=== PATIENT | female | born 1940 | race Caucasian/White ===

== ENCOUNTER 2016-08-29 09:01 | Emergency (ER) | payer MEDICARE, MEDICAID ==
[2016-08-29 09:34] VITALS: BP 110/72
--- NOTE | 2016-08-29 10:28 | UC ---
Respiratory Complaint HPI - HPI Summary HPI Summary: patient has ahd increasing SOB, cough and fatigue. Low grade fever. over the past 5 days. - History of Current Complaint Chief Complaint: UCGeneralIllness Stated Complaint: CHEST CONGESTION, COUGH Time Seen by Provider: 08/29/16 10:15 Hx Obtained From: Patient ?: No Onset/Duration: Sudden Onset, Lasting Days Timing: Constant Severity Initially: Mild Severity Currently: Moderate Pain Intensity: 6 Pain Scale Used: 0-10 Numeric Character: Cough: Productive Aggravating Factors: Deep Breaths, Recumbent Position Alleviating Factors: Nothing Associated Signs And Symptoms: Positive: Dyspnea, Chills, URI, Nasal Congestion , Sinus Discomfort - Allergies/Home Medications Allergies/Adverse Reactions: Allergies Allergy/AdvReac Type Severity Reaction Status Date / Time Diltiazem [Cardizem] Allergy Intermediate FEET / Verified 04/15/16 08:35 PAL[facility] PEEL Home Medications: Home Medications Furosemide [Lasix] 20 mg PO DAILY 08/29/16 [History Confirmed 08/29/16] Potassium Chlor TAB* [Klor Con ER TAB*] 20 meq PO DAILY 08/29/16 [History Confirmed 08/29/16] Valsartan 160 mg PO DAILY 08/29/16 [History Confirmed 08/29/16] PMH/Surg Hx/FS Hx/Imm Hx Previously Healthy: Yes Cardiovascular History Of: Reports: Cardiac Disorders - [place] 1993, AORTIC ANEURYSM , STENT LEFT FEMORAL, Hypertension Respiratory History Of: Reports: COPD, Asthma, Pneumonia GI/ History Of: Reports: Ulcer - Surgical History Surgical History: Yes Surgery Procedure, Year, and Place: Stent Left leg 2012, Open heart 1992, Angioplasty x 6, Cholecystectomy 2012. Basal cell spot removed from chest - Family History Known Family History: Positive: None, Hypertension - Social History Alcohol Use: Weekly Substance Use Type: None Smoking Status (MU): Heavy Every Day Tobacco Smoker Type: Cigarettes Amount Used/How Often: 1/2 pack per day Length of Time of Smoking/Using Tobacco: 59 years Have You Smoked in the Last Year: Yes Household Exposure Type: Cigarettes Review of Systems Constitutional: Chills, Fatigue Skin: Negative Eyes: Negative ENT: Ear Ache, Nasal Discharge Respiratory: Shortness Of Breath, Cough Cardiovascular: Negative Gastrointestinal: Negative Genitourinary: Negative Motor: Negative Neurovascular: Negative Musculoskeletal: Negative Neurological: Negative Psychological: Negative All Other Systems Reviewed And Are Negative: Yes Physical Exam Triage Information Reviewed: Yes Appearance: No Pain Distress, Well-Nourished, Ill-Appearing Vital Signs: Initial Vital Signs Temp 99.2 F 08/29/16 09:26 Pulse 78 08/29/16 09:26 Resp 16 08/29/16 09:26 BP 110/72 08/29/16 09:26 Pulse Ox 98 08/29/16 09:26 Vital Signs Reviewed: Yes Eye Exam: Normal Eyes: Positive: Conjunctiva Inflamed ENT Exam: Normal ENT: Positive: TM bulging Dental Exam: Normal Neck exam: Normal Neck: Positive: Supple, Nontender, No Lymphadenopathy Respiratory: Positive: Chest non-tender, No respiratory distress, No accessory muscle use, Decreased breath sounds, Crackles - RLL Cardiovascular Exam: Normal Cardiovascular: Positive: RRR, No Murmur, Pulses Normal Abdominal Exam: Normal Abdomen Description: Positive: Nontender, No Organomegaly, Soft Bowel Sounds: Positive: Present Musculoskeletal Exam: Normal Musculoskeletal: Positive: Strength Intact, ROM Intact, No Edema Neurological Exam: Normal Neurological: Positive: Alert, Muscle Tone Normal Psychological Exam: Normal Skin Exam: Normal UC Diagnostic Evaluation - Laboratory O2 Sat by Pulse Oximetry: 98 Respiratory Course/Dx - Differential Dx/Diagnosis Differential Diagnosis/HQI/PQRI: Aspiration, Bronchitis, Influenza, Laryngitis Provider Diagnoses: LLL pneumonia. cough. sob Discharge - Discharge Plan Condition: Stable Disposition: HOME Patient Education Materials: Community Acquired Pneumonia (ED) Additional Instructions: Please take the medication as prescribed. If you are still have increasing symptoms after a few days of treatement please follow up with your primary physician. I do recommend follow up after treatment to make sure it was successful. Use the albuterol, 3-4 times a day for the first couple days then 2 times a day when symptoms improve.
--- NOTE | 2016-08-29 10:59 | RAD ---
HISTORY: Cough, shortness breath, fever COMPARISONS: October 12, 2015 VIEWS: 2: Frontal dual-energy and lateral views of the chest. FINDINGS: CARDIOMEDIASTINAL SILHOUETTE: The cardiomediastinal silhouette is normal. JUAREZ: The juarez are normal. PLEURA: The costophrenic angles are sharp. No pleural abnormalities are noted. LUNG PARENCHYMA: There is hyperinflation with flattening of the diaphragm and expansion of the AP diameter of the chest. There is minimal linear opacification of the lingula ABDOMEN: The upper abdomen is clear. There is no subphrenic gas. BONES AND SOFT TISSUES: The patient is status post median sternotomy OTHER: None. IMPRESSION: 1. COPD. 2. PATCHY LINEAR ATELECTASIS VERSUS PLEURAL PARENCHYMAL SCARRING OF THE LEFT LUNG BASE
== END 2016-08-29 11:18 | disposition home or self-care (01) ==
LOC: UCCORT 09:01
DX: J18.9 Pneumonia, unspecified organism (principal); J44.9 Chronic obstructive pulmonary disease, unspecified; I25.2 Old myocardial infarction; I51.9 Heart disease, unspecified; J45.909 Unspecified asthma, uncomplicated; F17.210 Nicotine dependence, cigarettes, uncomplicated; Z95.820 Peripheral vascular angioplasty status with implants and grafts; Z88.8 Allergy status to other drugs, medicaments and biological substances
CPT/HCPCS: 71020; 99212; G0463

== ENCOUNTER 2016-11-16 08:12 | Emergency (ER) | payer MEDICARE, MEDICAID ==
[2016-11-16] MEDS ORDERED: Tetan/Diph/Pertus SYR(Tdap)* 0.5 ML SYR(BOOSTRIX) use SYR IM ONE (08:28)
--- NOTE | 2016-11-16 08:30 | UC ---
Skin Complaint HPI - HPI Summary HPI Summary: Patient hit the left joyce on the bathub 4 days ago, caused a skin tear. she was self treating and now it is infected. she is also three years behind on a tetanus. she is on Plavix. - History of Current Complaint Time Seen by Provider: 11/16/16 08:16 Stated Complaint: LEFT JOYCE PAIN Hx Obtained From: Patient ?: No Onset/Duration: Sudden Onset, Lasting Days Skin Exposure Onset/Duration: Days Ago Timing: Constant Onset Severity: Mild Current Severity: Mild Location: Discrete - left joyce Character: Redness, Painful Aggravating: Nothing Alleviating: Nothing - Allergy/Home Medications Allergies/Adverse Reactions: Allergies Allergy/AdvReac Type Severity Reaction Status Date / Time Diltiazem [Cardizem] Allergy Intermediate FEET / Verified 11/16/16 08:36 [facility] Review of Systems Constitutional: Negative Skin: Other - large skin tear Eyes: Other - red on sclera ENT: Negative Respiratory: Negative Cardiovascular: Negative Gastrointestinal: Negative Genitourinary: Negative Motor: Negative Neurovascular: Negative Musculoskeletal: Negative Neurological: Negative Psychological: Negative All Other Systems Reviewed And Are Negative: Yes PMH/Surg Hx/FS Hx/Imm Hx Previously Healthy: Yes Cardiovascular History Of: Reports: Cardiac Disorders - [place] 1993, AORTIC ANEURYSM , STENT LEFT FEMORAL, Hypertension Respiratory History Of: Reports: COPD, Asthma, Pneumonia GI/ History Of: Reports: Ulcer - Surgical History Surgical History: Yes Surgery Procedure, Year, and Place: Stent Left leg 2012, Open heart 1992, Angioplasty x 6, Cholecystectomy 2012. Basal cell spot removed from chest - Family History Known Family History: Positive: None, Hypertension - Social History Alcohol Use: Weekly Substance Use Type: None Smoking Status (MU): Heavy Every Day Tobacco Smoker Type: Cigarettes Amount Used/How Often: 1/2 pack per day Length of Time of Smoking/Using Tobacco: 59 years Have You Smoked in the Last Year: Yes Household Exposure Type: Cigarettes Physical Exam Triage Information Reviewed: Yes Appearance: Well-Nourished, Ill-Appearing, Pain Distress Vital Signs Reviewed: Yes Eye Exam: Normal Eyes: Positive: Conjunctiva Clear, Other: - large fluid filled bags under both eyes, left eye subconjunctival hemmorrage ENT: Positive: Hearing grossly normal, Pharynx normal, TMs normal Dental Exam: Normal Neck exam: Normal Neck: Positive: Supple, Nontender, No Lymphadenopathy Respiratory Exam: Normal Respiratory: Positive: Chest non-tender, Lungs clear, Normal breath sounds, No respiratory distress, No accessory muscle use Cardiovascular Exam: Normal Cardiovascular: Positive: RRR, No Murmur, Pulses Normal Abdominal Exam: Normal Abdomen Description: Positive: Nontender, No Organomegaly, Soft Bowel Sounds: Positive: Present Musculoskeletal Exam: Normal Musculoskeletal: Positive: Strength Intact, ROM Intact, No Edema Neurological Exam: Normal Neurological: Positive: Alert, Muscle Tone Normal Psychological Exam: Normal Skin: Positive: significant lesion(s) - large skin tear, old and scabbed, erythema down the leg, slightly edemetous Course/Dx - Course Course Of Treatment: hx obtained, exam performed, meds reviewed, skin cleansed dressed and treat with ABX - Differential Diagnoses - Skin Complaint Differential Diagnoses: Abscess, Cellulitis, Contact Dermatitis, Eczema - Diagnoses Provider Diagnoses: skin tear. vaccine administration of Dtap. cellulitis. subconjunctival hemmorrage Discharge - Discharge Plan Condition: Stable Disposition: HOME Patient Education Materials: Skin Tear (ED) Referrals: Jennifer Vazquez MD [Primary Care Provider] - Additional Instructions: Keep the dressing on for 24 hours. Try to keep the area clean and dry for the next 48 hours. elevated leg at rest and return here or your primary doctor if redness increases, you develop a fever or other symptoms.
[2016-11-16 08:36] VITALS: BP 149/65
== END 2016-11-16 09:10 | disposition home or self-care (01) ==
LOC: UCCORT 08:12
DX: S81.802A Unspecified open wound, left lower leg, initial encounter (principal); L03.116 Cellulitis of left lower limb; W22.09XA Striking against other stationary object, initial encounter; Y93.9 Activity, unspecified; Y92.002 Bathroom of unspecified non-institutional (private) residence as the place of occurrence of the external cause; Z23 Encounter for immunization; H11.32 Conjunctival hemorrhage, left eye; I25.2 Old myocardial infarction; I10 Essential (primary) hypertension; Z95.5 Presence of coronary angioplasty implant and graft; F17.210 Nicotine dependence, cigarettes, uncomplicated; Z79.01 Long term (current) use of anticoagulants; Z90.49 Acquired absence of other specified parts of digestive tract; Z88.8 Allergy status to other drugs, medicaments and biological substances
CPT/HCPCS: 90715; 96372; 99213; G0463

== ENCOUNTER 2017-01-25 08:16 | Emergency (ER) | payer MEDICARE, MEDICAID ==
[2017-01-25 08:57] VITALS: BP 124/66
[2017-01-25] MEDS ORDERED: Albuterol 2.5 MG/3 ML NEB.SOL* (0.083%) INH ONE (09:05)
--- NOTE | 2017-01-25 09:28 | RAD ---
INDICATION: Cough and shortness of breath. History of pneumonia. History of COPD. Coronary artery disease. COMPARISON: August 29, 2016 TECHNIQUE: Dual energy PA and routine lateral views of the chest were obtained. REPORT: Elevated lung volumes and both diffuse mild prominence of the interstitial markings and patchy rarefaction of the mid to upper lung zone interstitial markings. Minimal LEFT basilar linear subsegmental atelectasis. No consolidation concerning for pneumonia or suspicious focal pulmonary lesion. Negative for pleural effusion or pneumothorax. Median sternotomy wires. Negative for cardiomegaly. Unremarkable central pulmonary vasculature and mediastinal contours. Gallbladder fossa level surgical clips. Bone density appears decreased. Multilevel thoracic degenerative spondylosis. IMPRESSION: Stigmata of obstructive lung disease. Minimal linear LEFT basilar subsegmental atelectasis.
--- NOTE | 2017-01-25 09:30 | UC ---
Respiratory Complaint HPI - HPI Summary HPI Summary: productive cough x 7 days + green sputum, + nasal congestion , pnd, no fever, + chills, + sob \ hx of frequent pneumonia - History of Current Complaint Chief Complaint: UCRespiratory Stated Complaint: COUGH Time Seen by Provider: 01/25/17 09:00 Hx Obtained From: Patient Onset/Duration: Gradual Onset, Lasting Days - 7, Still Present Timing: Constant Severity Initially: Moderate Severity Currently: Moderate Character: Cough: Productive - green Aggravating Factors: Exertion, Deep Breaths Alleviating Factors: Nothing Associated Signs And Symptoms: Positive: Dyspnea, Chills, URI, Nasal Congestion. Negative: Fever, Pleuritic Chest Pain, Wheezing, Hemoptysis, Dizziness, Calf Pain, Calf Swelling, Edema, Hoarseness, Sinus Discomfort - Allergies/Home Medications Allergies/Adverse Reactions: Allergies Allergy/AdvReac Type Severity Reaction Status Date / Time Diltiazem [Cardizem] Allergy Intermediate FEET / Verified 01/25/17 08:36 [facility]EL Home Medications: Home Medications Clopidogrel TAB* [Plavix TAB*] 75 mg PO DAILY 01/25/17 [History Confirmed ] PMH/Surg Hx/FS Hx/Imm Hx Respiratory History: COPD - Surgical History Surgical History: Yes Surgery Procedure, Year, and Place: Stent Left leg 2012, Open heart 1992, Angioplasty x 6, Cholecystectomy 2012. Basal cell spot removed from chest - Family History Known Family History: Positive: None, Hypertension - Social History Alcohol Use: Occasionally Substance Use Type: None Smoking Status (MU): Heavy Every Day Tobacco Smoker Type: Cigarettes Amount Used/How Often: 1/2 pack per day Length of Time of Smoking/Using Tobacco: 59 years Have You Smoked in the Last Year: Yes Household Exposure Type: Cigarettes - Immunization History Most Recent Influenza Vaccination: 2016 Most Recent Tetanus Shot: UTD Most Recent Pneumonia Vaccination: UTD Review of Systems Constitutional: Fever, Chills, Fatigue Skin: Negative Eyes: Negative ENT: Nasal Discharge Respiratory: Shortness Of Breath, Cough Cardiovascular: Negative Gastrointestinal: Negative Genitourinary: Negative All Other Systems Reviewed And Are Negative: Yes Physical Exam Triage Information Reviewed: Yes Appearance: Well-Appearing, No Pain Distress, Well-Nourished Vital Signs: Initial Vital Signs Temp 98.4 F 01/25/17 08:48 Pulse 63 01/25/17 08:48 Resp 20 01/25/17 08:48 BP 124/66 01/25/17 08:48 Pulse Ox 95 01/25/17 08:48 Vital Signs Reviewed: Yes Eyes: Positive: Conjunctiva Clear ENT: Positive: Normal ENT inspection, Hearing grossly normal, Pharynx normal, TMs normal. Negative: Pharyngeal erythema, Nasal congestion, Nasal drainage Neck: Positive: Supple, Nontender, No Lymphadenopathy Respiratory: Positive: Chest non-tender, Lungs clear, Decreased breath sounds, Crackles - right lower lungs. Negative: No accessory muscle use, Respiratory distress Cardiovascular: Positive: RRR, No Murmur, Pulses Normal Skin Exam: Normal UC Diagnostic Evaluation - Laboratory O2 Sat by Pulse Oximetry: 95 Respiratory Course/Dx - Differential Dx/Diagnosis Provider Diagnoses: Acute Bronchitis Discharge - Discharge Plan Condition: Stable Disposition: HOME Prescriptions: Benzonatate CAP* [Tessalon 100 MG CAP*] 100 mg PO TID PRN #21 cap PRN Reason: Cough DOXYcycline CAP(*) [DOXYcycline 100MG CAP(*)] 100 mg PO BID #20 cap Prednisone 20 mg PO BID #10 tab Patient Education Materials: Acute Bronchitis (ED), COPD (Chronic Obstructive Pulmonary Disease) (ED) Referrals: Jennifer Vazquez MD [Primary Care Provider] - 7 Days
== END 2017-01-25 09:51 | disposition home or self-care (01) ==
LOC: UCCORT 08:16
DX: J20.9 Acute bronchitis, unspecified (principal); J44.9 Chronic obstructive pulmonary disease, unspecified; Z90.49 Acquired absence of other specified parts of digestive tract; Z88.8 Allergy status to other drugs, medicaments and biological substances; F17.210 Nicotine dependence, cigarettes, uncomplicated
CPT/HCPCS: 71020; 99212; G0463

== ENCOUNTER 2017-12-04 08:34 | Emergency (ER) | payer MEDICARE, MEDICAID ==
[2017-12-04 09:12] VITALS: BP 133/59
[2017-12-04] MEDS ORDERED: Albuterol/Ipratropium NEB.SOL* Albuterol 2.5 MG/Ipratropium 0.5 MG 3 ML INH ONE (10:06)
--- NOTE | 2017-12-04 10:41 | RAD ---
INDICATION: Shortness of breath COMPARISON: Most recent comparison chest x-ray January 25, 2017 TECHNIQUE: PA and lateral views of the chest were obtained. FINDINGS: Similar to the prior chest x-ray, there is a mild degree of cardiomegaly as well as coarse calcification overlying the arch of the aorta. There is bibasilar costophrenic angle blunting as well as density partially obscuring the left hemidiaphragm. The pulmonary vasculature appears engorged and indistinct relative to the previous chest x-ray.. Visualized bones are normal for the patient's age. There is no radiographic evidence of free air beneath the diaphragm IMPRESSION: IN THE CORRECT CLINICAL SETTING CHEST X-RAY FINDINGS ARE MOST CONSISTENT WITH PULMONARY EDEMA AND VASCULAR CONGESTION LIKELY WITH SMALL , LEFT GREATER THAN RIGHT BIBASILAR PLEURAL EFFUSIONS.
--- NOTE | 2017-12-04 10:49 | UC ---
Shortness of Breath HPI - HPI Summary HPI Summary: Patient is to the urgent care today with 2 days of shortness of breath and chest congestion. Does report some chest pressure does state that she has gained 5 pounds in the last 24 hours. - History of Current Complaint Chief Complaint: UCGeneralIllness Stated Complaint: CHEST CONGESTION Time Seen by Provider: 12/04/17 09:50 Hx Obtained From: Patient ?: No Onset/Duration: Gradual Onset, Lasting Days, Still Present Timing: Constant Current Severity: Moderate Dyspnea At: Exertion Aggrevating Factors: Movement Alleviating Factors: Bronchodilators Associated Signs & Symptoms: Positive: Cough (Nonproductive) - Allergy/Home Medications Allergies/Adverse Reactions: Allergies Allergy/AdvReac Type Severity Reaction Status Date / Time diltiazem Allergy Unknown Verified 12/04/17 09:01 Reaction Details Home Medications: Home Medications Albuterol Sulfate [Proventil Hfa] 108 mcg IN Q4H PRN 12/04/17 [History Confirmed 12/04/17] Albuterol/Ipratropium RESP(NF) [Combivent Respimat(NF)] 1 aer IN DAILY 12/04/17 [History Confirmed 12/04/17] Atorvastatin* [Lipitor*] 40 mg PO DAILY 12/04/17 [History Confirmed 12/04/17] Cilostazol TAB* [Pletal TAB*] 100 mg PO DAILY 12/04/17 [History Confirmed ] Fluticasone HFA 110 mcg(NF) [Flovent HFA 110 mcg(NF)] 1 puff INH BID 12/04/17 [ History Confirmed 12/04/17] Gabapentin CAP(*) [Neurontin 100 mg CAP(*)] 100 mg PO TID 12/04/17 [History Confirmed 12/04/17] PMH/Surg Hx/FS Hx/Imm Hx Previously Healthy: No Endocrine History: Dyslipidemia Cardiovascular History: Cardiac Disease, Hypertension Respiratory History: COPD - Surgical History Surgical History: Yes Surgery Procedure, Year, and Place: Stent Left leg 2012, Open heart 1992, Angioplasty x 6, Cholecystectomy 2012. Basal cell spot removed from chest - Family History Known Family History: Positive: None, Hypertension - Social History Occupation: Retired Lives: With Family Alcohol Use: None Substance Use Type: None Smoking Status (MU): Heavy Every Day Tobacco Smoker Type: Cigarettes Amount Used/How Often: 1/2 pack per day Length of Time of Smoking/Using Tobacco: 59 years Have You Smoked in the Last Year: Yes Household Exposure Type: Cigarettes Cessation Counseling: Counseled 3+Min - 10 Min - Immunization History Most Recent Influenza Vaccination: 2016 Most Recent Tetanus Shot: UTD Most Recent Pneumonia Vaccination: UTD Review of Systems Constitutional: Negative Skin: Negative Eyes: Negative ENT: Negative Respiratory: Shortness Of Breath, Cough Cardiovascular: Chest Pain Gastrointestinal: Negative Genitourinary: Negative Motor: Negative Neurovascular: Negative Musculoskeletal: Negative Neurological: Negative Psychological: Negative Is Patient Immunocompromised?: No All Other Systems Reviewed And Are Negative: Yes Physical Exam Triage Information Reviewed: Yes Appearance: Well-Nourished, Ill-Appearing Vital Signs: Initial Vital Signs Temp 98.9 F 12/04/17 09:00 Pulse 73 12/04/17 09:00 Resp 26 12/04/17 09:00 BP 133/59 12/04/17 09:00 Pulse Ox 96 12/04/17 09:00 Vital Signs Reviewed: Yes Eye Exam: Normal Eyes: Positive: Conjunctiva Clear ENT Exam: Normal ENT: Positive: Normal ENT inspection, Hearing grossly normal, TMs normal, Uvula midline. Negative: Nasal congestion, Tonsillar swelling, Tonsillar exudate, Trismus, Muffled voice, Hoarse voice Neck exam: Normal Neck: Positive: Supple, Nontender, No Lymphadenopathy Respiratory Exam: Normal Respiratory: Positive: Chest non-tender, No accessory muscle use, Respiratory distress, Wheezing Cardiovascular Exam: Normal Cardiovascular: Positive: RRR, No Murmur, Pulses Normal, Brisk Capillary Refill Musculoskeletal Exam: Normal Musculoskeletal: Positive: Strength Intact, ROM Intact, No Edema Neurological Exam: Normal Neurological: Positive: Alert, Muscle Tone Normal Psychological Exam: Normal Skin Exam: Normal Diagnostics - Radiology No standard instances Xray Interpretation: Positive (See Comments) Radiology Interpretation Completed By: ED Physician - Pulmonary edema, vascular congestion, bibasilar pleural effusions, Radiologist - EKG Cardiac Rate: NL Cardiac Rhythm: Sinus: Normal - DIVC Ectopy: None ST Segment: Non-Specific - anterior leads Shortness of Breath Dx - Course Course Of Treatment: Patient refuses EMS transport. Patient will be discharged from the urgent care to go directly to the emergency department at [facility] for further evaluation and treatment - Differential Dx/Diagnosis Provider Diagnoses: Shortness of breath, pulmonary edema, by basilar pleural effusions, nicotine dependence Discharge - Sign-Out/Discharge Documenting (check all that apply): Discharge - Discharge Plan Condition: Guarded Disposition: HOME Patient Education Materials: Dyspnea (ED), Shortness of Breath (ED) Referrals: Jennifer Vazquez MD [Primary Care Provider] - As Soon As Possible Additional Instructions: Liss were discharging her from the urgent care to go directly over to the emergency department at [facility] for further evaluation care and treatment - Billing Disposition and Condition Condition: GUARDED Disposition: HOME
== END 2017-12-04 11:00 | disposition home or self-care (01) ==
LOC: UCCORT 08:34
DX: R06.02 Shortness of breath (principal); J81.1 Chronic pulmonary edema; J90 Pleural effusion, not elsewhere classified; F17.210 Nicotine dependence, cigarettes, uncomplicated; Z88.8 Allergy status to other drugs, medicaments and biological substances
CPT/HCPCS: 71046; 93005; 99212; A9270-GY; G0463